=== PATIENT | female | born 2000 | race Caucasian/White ===

== ENCOUNTER 2020-12-15 12:59 | Emergency (ER) | payer MEDICAID ==
[2020-12-15] MEDS ORDERED: TORAdol 30 mg Injection IV ONE (13:23)
[2020-12-15] MEDS ORDERED: TORAdol 30 mg Injection ONE (13:25)
[2020-12-15 13:41] LABS: Appearance CLOUDY (CLEAR); Bacteria MODERATE /HPF (NEGATIVE); Bilirubin NEGATIVE (NEGATIVE); Blood SMALL Ery/ul (0-5); Glucose NEGATIVE (NEGATIVE); Ketones NEGATIVE (NEGATIVE); Leukocyte Esterase MODERATE (NEGATIVE); Mucus MODERATE /HPF (NEGATIVE); Nitrite POSITIVE (NEGATIVE); Protein,Urine Dip 100 (Negative); Specific Gravity 1.014 (1.005-1.025); Urobilinogen 2 mg/dL (0-1); WBC >100 /HPF (0-5)
[2020-12-15 14:13] VITALS: O2SAT 98
--- NOTE | 2020-12-15 14:24 | ERPHSYRPT ---
- History of Present Illness Historian: patient Patient Subjective Stated Complaint: R flank pain, hematuria, frequency x3 days. Triage Nursing Assessment: Pt A & OX3, ambulatory. Wincing in pain. Reports R flank pain x 3 days, radiating to RLQ. Denies vomiting or diarrhea. Reports urinary frequency and hematuria x 3 days. Tachycardic. Skin warm and dry, slightly pale. Physician History: 20 yo wf w R flank pain x 3 days. Pain is 9/10 and sharp. She states that she moulton s had hematuria but denies dysuria/fever/N/V/D/trauma. Nothing makes the pain better or worse, and she has never had this pain before. Timing/Duration: other (3 days) Quality: sharpness Abdominal Pain Onset Location: flank (R flank/R CVA) Pain Radiation: groin (R) Severity of Pain-Max: severe Severity of Pain-Current: severe Modifying Factors: Improves With: nothing Associated Symptoms: back, No chest pain, No diaphoresis, No diarrhea, No fever/chills, No fatigue, No headache, No heartburn, No loss of appetite, No nausea, No neck pain, No rash, No shortness of breath, No syncope, No vomiting Previous symptoms: no prior history Allergies/Adverse Reactions: Penicillins Allergy (Verified 12/15/20 13:16) hives Hx Tetanus, Diphtheria Vaccination/Date Given: Yes Hx Influenza Vaccination/Date Given: Yes Travel Risk - International Travel Have you traveled outside of the country in past 3 weeks: No - Coronavirus Screening Are you exhibiting any of the following symptoms?: No - Review of Systems Constitutional: No Symptoms Eyes: No Symptoms Ears, Nose, & Throat: No Symptoms Respiratory: No Symptoms Cardiac: No Symptoms Abdominal/Gastrointestinal: Abdominal Pain Genitourinary Symptoms: No Symptoms, Hematuria Musculoskeletal: No Symptoms Skin: No Symptoms Neurological: No Symptoms Psychological: No Symptoms Endocrine: No Symptoms Hematologic/Lymphatic: No Symptoms Immunological/Allergic: No Symptoms - Past Medical History Pertinent Past Medical History: No - Past Surgical History Past Surgical History: No - Social History Smoking Status: Current every day smoker Drug Use: none Patient Lives Alone: Yes Significant Family History: no pertinent family hx - Female History Hx Last Menstrual Period: 11/24/2020 Hx Now: No - Nursing Vital Signs Nursing Vital Signs: Initial Vital Signs Pulse Rate 126 H 12/15/20 13:09 Respiratory Rate 19 12/15/20 13:09 Blood Pressure 122/72 12/15/20 13:09 O2 Sat by Pulse Oximetry 99 12/15/20 13:09 Pain Scale Pain Intensity 9 - Physical Exam General Appearance: no apparent distress (In pain) Eye Exam: PERRL/EOMI, eyes nml inspection Ears, Nose, Throat Exam: normal ENT inspection, TMs normal, pharynx normal, moist mucous membranes Neck Exam: normal inspection, non-tender, supple, full range of motion, No meningismus, No mass, No Brudzinski, No Kernig's Respiratory Exam: normal breath sounds Cardiovascular Exam: tachycardia, No murmur Gastrointestinal/Abdomen Exam: soft (R flank ttp/R CVA ttp) Pelvic Exam: not done Rectal Exam: deferred Extremity Exam: pelvis stable, tenderness (R CVA ttp) Neurologic Exam: alert, oriented x 3, cooperative, shellacker II-XII nml as tested, normal mood/affect, nml cerebellar function, nml station & gait, sensation nml, No motor deficits, No sensory deficit Skin Exam: normal color, warm, dry Lymphatic Exam: adenopathy SpO2 Interpretation: normal SpO2: 98 O2 Delivery: Room Air - Course Nursing assessment & vital signs reviewed: Yes - CT Exams Abdomen/Pelvis CT Interpretation: Discussed w/radiologist (R renal edema w perinephric stranding) Ordered Tests: Active Orders 24 hr Category Date Time Status ABDOMEN AND PELVIS W/0 CONTRAS [CT] Stat Exams 12/15/20 14:25 Completed CBC W DIFF Stat Lab 12/15/20 13:15 Completed CMP Stat Lab 12/15/20 13:15 Completed CULTURE,URINE Stat Lab 12/15/20 13:24 Received HCG,QUALITATIVE URINE Stat Lab 12/15/20 13:24 Completed POCT GLUCOSE Stat Lab 12/15/20 13:10 Completed UA W/RFX UR CULTURE Stat Lab 12/15/20 13:24 Completed Medication Summary Discontinued Medications Generic Name Dose Route Start Last Admin Trade Name Freq PRN Reason Stop Dose Admin Fentanyl Citrate 50 mcg 12/15/20 14:25 12/15/20 14:48 Sublimaze 100 Mcg/2 Ml IV 12/15/20 14:26 50 mcg STAT ONE Administration Fentanyl Citrate Confirm 12/15/20 14:45 Sublimaze 100 Mcg/2 Ml Administered 12/15/20 14:46 Dose 100 mcg .ROUTE .STK-MED ONE Hydromorphone HCl 1 mg 12/15/20 16:28 12/15/20 16:29 Hydromorphone 1 Mg/Ml Injection IV 12/15/20 16:29 1 mg STAT ONE Administration Hydromorphone HCl Confirm 12/15/20 16:28 Hydromorphone 1 Mg/Ml Injection Administered 12/15/20 16:29 Dose 1 mg .ROUTE .STK-MED ONE Ceftriaxone Sodium/Dextrose 1 g in 50 mls @ 100 mls/hr 12/15/20 15:07 12/15/20 15:59 Rocephin 1 Gm-D5w 50 Ml Bag IV 12/15/20 15:36 Infused STAT STA Infusion Sodium Chloride 1,000 mls @ 999 mls/hr 12/15/20 15:07 12/15/20 16:16 Sodium Chloride 0.9% 1000 Ml IV 12/15/20 16:07 Infused .Q1H1M STA Infusion Sodium Chloride Confirm 12/15/20 15:06 Sodium Chloride 0.9% 1000 Ml Administered 12/15/20 15:07 Dose 1,000 mls @ ud .ROUTE .STK-MED ONE Ceftriaxone Sodium/Dextrose Confirm 12/15/20 15:07 Rocephin 1 Gm-D5w 50 Ml Bag Administered 12/15/20 15:08 Dose 1 g in 50 mls @ ud IV .STK-MED ONE Ketorolac Tromethamine 30 mg 12/15/20 13:23 12/15/20 13:26 Toradol 30 Mg Injection IV 12/15/20 13:24 30 mg STAT ONE Administration Ketorolac Tromethamine Confirm 12/15/20 13:25 Toradol 30 Mg Injection Administered 12/15/20 13:26 Dose 30 mg .ROUTE .STK-MED ONE Ondansetron HCl 4 mg 12/15/20 14:26 12/15/20 14:47 Zofran 4 Mg/2 Ml Vial IV 12/15/20 14:27 4 mg STAT ONE Administration Ondansetron HCl Confirm 12/15/20 14:44 Zofran 4 Mg/2 Ml Vial Administered 12/15/20 14:45 Dose 4 mg .ROUTE .STK-MED ONE Lab/Rad Data: Laboratory Result Diagrams 12/15/20 13:15 12/15/20 13:15 Laboratory Results 12/15/20 12/15/20 12/15/20 Range/Units 13:24 13:24 13:15 WBC (4.0-10.5) K/mm3 RBC (4.1-5.4) M/mm3 Hgb (12.0-16.0) gm/dl Hct (35-47) % MCV (78-100) fl MCH (26-32) pg MCHC (32-36) g/dl RDW (11.5-14.0) % Plt Count (150-450) K/mm3 MPV (7.5-11.0) fl Gran % (36.0-66.0) % Eos # (Auto) (0-0.5) Absolute Lymphs (auto) (1.0-4.6) Absolute Monos (auto) (0.0-1.3) Lymphocytes % (24.0-44.0) % Monocytes % (0.0-12.0) % Eosinophils % (0.00-5.0) % Basophils % (0.0-0.4) % Absolute Granulocytes (1.4-6.9) Basophils # (0-0.4) Sodium 135 L (137-145) mmol/L Potassium 3.5 (3.5-5.1) mmol/L Chloride 101 (98-107) mmol/L Carbon Dioxide 24 (22-30) mmol/L Anion Gap 13.9 (5-15) MEQ/L BUN 6 L (7-17) mg/dL Creatinine 0.73 (0.52-1.04) mg/dL Estimated GFR > 60.0 ML/MIN Glucose 137 H (74-106) mg/dL POC Glucometer (74 to 106) mg/dL Calcium 9.5 (8.4-10.2) mg/dL Total Bilirubin 0.40 (0.2-1.3) mg/dL AST 23 (14-36) U/L ALT 17 (0-35) U/L Alkaline Phosphatase 75 (38-126) U/L Serum Total Protein 7.3 (6.3-8.2) g/dL Albumin 4.0 (3.5-5.0) g/dL Urine Color YELLOW (YELLOW) Urine Appearance CLOUDY (CLEAR) Urine pH 6.0 (5-6) Ur Specific [place] 1.014 (1.005-1.025) Urine Protein 100 (Negative) Urine Ketones NEGATIVE (NEGATIVE) Urine Blood SMALL (0-5) Alexandre/ul Urine Nitrite POSITIVE (NEGATIVE) Urine Bilirubin NEGATIVE (NEGATIVE) Urine Urobilinogen 2 (0-1) mg/dL Ur Leukocyte Esterase MODERATE (NEGATIVE) Urine WBC (Auto) >100 (0-5) /HPF Urine RBC (Auto) 16-25 (0-2) /HPF U Epithel Cells (Auto) NONE (FEW) /HPF Urine Bacteria (Auto) MODERATE (NEGATIVE) /HPF Urine Mucus (Auto) MODERATE (NEGATIVE) /HPF Urine Culture Reflexed YES (NO) Urine Glucose NEGATIVE (NEGATIVE) mg/dL Urine HCG, Qual NEGATIVE (Negative) 12/15/20 12/15/20 Range/Units 13:15 13:10 WBC 18.2 H (4.0-10.5) K/mm3 RBC 4.73 (4.1-5.4) M/mm3 Hgb 14.4 (12.0-16.0) gm/dl Hct 43.6 (35-47) % MCV 92.2 (78-100) fl MCH 30.4 (26-32) pg MCHC 33.0 (32-36) g/dl RDW 13.8 (11.5-14.0) % Plt Count 330 (150-450) K/mm3 MPV 10.4 (7.5-11.0) fl Gran % 83.9 H (36.0-66.0) % Eos # (Auto) 0.07 (0-0.5) Absolute Lymphs (auto) 1.71 (1.0-4.6) Absolute Monos (auto) 1.11 (0.0-1.3) Lymphocytes % 9.4 L (24.0-44.0) % Monocytes % 6.1 (0.0-12.0) % Eosinophils % 0.4 (0.00-5.0) % Basophils % 0.2 (0.0-0.4) % Absolute Granulocytes 15.27 H (1.4-6.9) Basophils # 0.03 (0-0.4) Sodium (137-145) mmol/L Potassium (3.5-5.1) mmol/L Chloride (98-107) mmol/L Carbon Dioxide (22-30) mmol/L Anion Gap (5-15) MEQ/L BUN (7-17) mg/dL Creatinine (0.52-1.04) mg/dL Estimated GFR ML/MIN Glucose (74-106) mg/dL POC Glucometer 179 H (74 to 106) mg/dL Calcium (8.4-10.2) mg/dL Total Bilirubin (0.2-1.3) mg/dL AST (14-36) U/L ALT (0-35) U/L Alkaline Phosphatase (38-126) U/L Serum Total Protein (6.3-8.2) g/dL Albumin (3.5-5.0) g/dL Urine Color (YELLOW) Urine Appearance (CLEAR) Urine pH (5-6) Ur Specific [place] (1.005-1.025) Urine Protein (Negative) Urine Ketones (NEGATIVE) Urine Blood (0-5) Alexandre/ul Urine Nitrite (NEGATIVE) Urine Bilirubin (NEGATIVE) Urine Urobilinogen (0-1) mg/dL Ur Leukocyte Esterase (NEGATIVE) Urine WBC (Auto) (0-5) /HPF Urine RBC (Auto) (0-2) /HPF U Epithel Cells (Auto) (FEW) /HPF Urine Bacteria (Auto) (NEGATIVE) /HPF Urine Mucus (Auto) (NEGATIVE) /HPF Urine Culture Reflexed (NO) Urine Glucose (NEGATIVE) mg/dL Urine HCG, Qual (Negative) - Progress Progress: improved Progress Note: 12/15/20 16:12 30mg IV Toradol w minimal relief 4mg IV Zofran 100umg Iv Fentanyl w improvement in pain 1L NS bolus 1gm IV rocephin 12/15/20 16:13 12/15/20 20:30 1mg IV Dilaudid before discharge Counseled pt/family regarding: lab results, diagnosis, need for follow-up, rad results - Departure Departure Disposition: Home Clinical Impression: Pyelonephritis Condition: Stable Critical Care Time: No Referrals: SATISH MCDERMOTT [Primary Care Provider] - Instructions: Urinary Tract Infection, Adult (DC) Additional Instructions: Start antibiotic solo Pain meds as needed Return to ER for increasing pain or temperature greater than 100.5 Follow up with your family MD banda Prescriptions: Hydrocodone/Acetaminophen [Hydrocodone-Acetamin 10-325 mg^^^] 1 each PO Q4HPRN PRN #5 tablet MDD 4 tabs PRN Reason: Pain Sulfamethoxazole/Trimethoprim [Bactrim Ds Tablet] 1 each PO BID 7 Days #14 tabl et MDD 4 tabs
[2020-12-15] MEDS ORDERED: SUBLIMAZE 100 MCG/2 ML IV ONE (14:25)
[2020-12-15] MEDS ORDERED: Zofran 4 MG/2 ML VIAL IV ONE (14:26)
[2020-12-15] MEDS ORDERED: Zofran 4 MG/2 ML VIAL ONE (14:44)
[2020-12-15] MEDS ORDERED: SUBLIMAZE 100 MCG/2 ML ONE (14:45)
[2020-12-15 14:54] LABS: Absolute Neutrophil Ct (ANC) 15.27 (1.4-6.9); BASOPHIL % 0.2 % (0.0-0.4); Basophil (Absolute #) 0.03 (0-0.4); Eosinophil % 0.4 % (0.00-5.0); Eosinophil (Absolute #) 0.07 (0-0.5); Hematocrit 43.6 % (35-47); Hemoglobin 14.4 gm/dl (12.0-16.0); Lymphocyte (Absolute #) 1.71 (1.0-4.6); Lymphocytes % 9.4 % (24.0-44.0); Mean Cell Volume 92.2 fl (78-100); Mean Corpuscular Hemoglobin 30.4 pg (26-32); Mean Platelet Volume 10.4 fl (7.5-11.0); Monocyte (Absolute #) 1.11 (0.0-1.3); Monocytes % 6.1 % (0.0-12.0); Neutrophil % 83.9 % (36.0-66.0); Platelet Count 330 K/mm3 (150-450); Red Blood Count 4.73 M/mm3 (4.1-5.4); Red Cell Distribution Width 13.8 % (11.5-14.0); White Blood Count 18.2 K/mm3 (4.0-10.5)
--- NOTE | 2020-12-15 14:56 | XRAY ---
Indication: Abdomen pain radiating to right back. Nausea and vomiting. Multiple contiguous axial images obtained through the abdomen and pelvis without contrast using renal stone protocol. Comparison: None Lung bases are clear. Heart is not enlarged. Stomach is markedly distended with food/fluid. Noncontrasted bowel loops appear nonobstructed. Normal appendix. There is mild/moderate diffuse scattered colonic fecal debris throughout. No free fluid/air. Tiny splenic calcified granulomas. Both kidneys demonstrates faint nephrocalcinosis. Right kidney also appears mildly edematous with perinephric stranding favoring underlying inflammatory/infectious process. Also minimal right hydronephrosis suggestive of recent passage of calculus. Remaining liver, gallbladder, pancreas, spleen, adrenal glands, kidneys, ureters, bladder, uterus, and aorta appear unremarkable for noncontrast exam. Osseous structures intact. Impression: 1. Right renal edema with perinephric stranding and minimal hydronephrosis. Rule out nephritis versus recent obstructive uropathy. 2. Diffuse fecal stasis. 3. Incidental faint nonobstructing bilateral nephrocalcinosis.
[2020-12-15 15:02] LABS: ALKALINE PHOSPHATASE 75 U/L (38-126); ANION GAP 13.9 MEQ/L (5-15); BLOOD UREA NITROGEN 6 mg/dL (7-17); CHLORIDE 101 mmol/L (98-107); Calcium 9.5 mg/dL (8.4-10.2); Carbon Dioxide 24 mmol/L (22-30); Creatinine 1 0.73 mg/dL (0.52-1.04); EST GLOMERULAR FILTRATION RATE > 60.0 ML/MIN; Glucose 137 mg/dL (74-106); Potassium 3.5 mmol/L (3.5-5.1); SGOT/AST 23 U/L (14-36); SGPT/ALT 17 U/L (0-35); SODIUM 135 mmol/L (137-145); Total Protein 7.3 g/dL (6.3-8.2)
[2020-12-15] MEDS ORDERED: Sodium Chloride 0.9% 1000 ML 1,000 ML ONE (15:06)
[2020-12-15] MEDS ORDERED: Sodium Chloride 0.9% 1000 ML 1,000 ML IV STA (15:07)
[2020-12-15] MEDS ORDERED: ROCEPHIN 1 Gm-D5w 50 ml Bag** 1 G/50 ML IVPB IV STA (15:07)
[2020-12-15] MEDS ORDERED: ROCEPHIN 1 Gm-D5w 50 ml Bag** 1 G/50 ML IVPB IV ONE (15:07)
[2020-12-15 16:10] VITALS: BP 127/68; PULSE 101
[2020-12-15] MEDS ORDERED: Hydromorphone 1 mg/ml Injection IV ONE (16:28)
[2020-12-15] MEDS ORDERED: Hydromorphone 1 mg/ml Injection ONE (16:28)
== END 2020-12-15 16:41 | disposition home or self-care (01) ==
LOC: ED 12:59
DX: N12 Tubulo-interstitial nephritis, not specified as acute or chronic (principal)
CPT/HCPCS: 36000; 36415; 74176; 80053; 81001; 82947; 84703; 85025; 87077; 87086; 87186; 96360; 96365; 96374; 96375; 99284; J0696; J1170; J1885; J2405; J3010

== ENCOUNTER 2020-12-26 07:20 | Emergency (ER) | payer MEDICAID ==
[2020-12-26] MEDS ORDERED: Zofran 4 MG/2 ML VIAL ONE (07:36)
[2020-12-26] MEDS ORDERED: Hydromorphone 1 mg/ml Injection IV ONE ×2 (07:36→08:09)
[2020-12-26] MEDS ORDERED: Zofran 4 MG/2 ML VIAL IV ONE (07:36)
[2020-12-26] MEDS ORDERED: Hydromorphone 1 mg/ml Injection ONE ×2 (07:37→08:13)
[2020-12-26] MEDS ORDERED: Ativan 2 MG/1 ML VIAL IV PRN (07:52)
--- NOTE | 2020-12-26 07:52 | ERPHSYRPT ---
- History of Present Illness Time Seen by Provider: 12/26/20 07:26 Source: patient Exam Limitations: no limitations Physician History: 20 years old female with history of right shoulder dislocations in the past presented in the ER with chief complaint of sudden onset right shoulder pain prior to arrival when she rolled over her bed and dislocated. Complaining of sharp throbbing 10/10 intensity pain right shoulder which is aggravated with minimal movement and no significant relieving factor except for being still with minimally decreases the pain. No numbness tingling or weakness in the right upper extremity. No fall or trauma reported. Occurred: this morning Quality: sharpness, stabbing Severity of Pain-Max: severe Severity of Pain-Current: severe Extremities Pain Location: shoulder: right Modifying Factors: Improves With: immobilization. Worsens With: movement Associated Symptoms: none Allergies/Adverse Reactions: Penicillins Allergy (Verified 12/26/20 07:55) hives Home Medications: Loratadine 10 mg [Claritin 10 mg] 10 mg PO DAILY 12/26/20 [History] Hx Tetanus, Diphtheria Vaccination/Date Given: Yes Hx Influenza Vaccination/Date Given: Yes - Review of Systems Constitutional: No Symptoms Eyes: No Symptoms Ears, Nose, & Throat: No Symptoms Respiratory: No Symptoms Cardiac: No Symptoms Abdominal/Gastrointestinal: No Symptoms Genitourinary Symptoms: No Symptoms Musculoskeletal: Arthralgias, Deformity, Joint Pain Skin: No Symptoms Neurological: No Symptoms Psychological: Anxiety Hematologic/Lymphatic: No Symptoms Immunological/Allergic: No Symptoms - Past Medical History Pertinent Past Medical History: No - Past Surgical History Past Surgical History: No - Social History Smoking Status: Current every day smoker Drug Use: none Patient Lives Alone: Yes Significant Family History: no pertinent family hx - Female History Hx Now: (unkn) - Nursing Vital Signs Nursing Vital Signs: Initial Vital Signs Temperature 98.2 F 12/26/20 07:27 Pulse Rate 120 H 12/26/20 07:27 Respiratory Rate 25 H 12/26/20 07:27 Blood Pressure 135/100 12/26/20 07:27 O2 Sat by Pulse Oximetry 98 12/26/20 07:27 Pain Scale Pain Intensity 0 - Physical Exam General Appearance: no apparent distress Eyes, Ears, Nose, Throat Exam: normal ENT inspection Neck Exam: normal inspection, non-tender, supple, full range of motion Cardiovascular/Respiratory Exam: chest non-tender, normal breath sounds, regular rate/rhythm Abdominal Exam: non-tender, soft Back Exam: normal inspection, normal range of motion Shoulder Exam: asymmetry, bone tenderness, deformity (Right shoulder), limited ROM, pain, soft tissue tenderness Elbow/Forearm Exam: normal inspection, non-tender, no evidence of injury Wrist Exam: normal inspection, non-tender, no evidence of injury, normal ROM Hand Exam: normal inspection, non-tender, no evidence of injury Neuro/Tendon Exam: normal sensation, normal motor functions Mental Status Exam: alert, oriented x 3, cooperative Skin Exam: normal color SpO2 Interpretation: normal SpO2: 95 O2 Delivery: Room Air Procedures - Joint Reduction Timeout: Performed Joint Reduction Site: Right, shoulder Conscious Sedation: Yes Reduction Attempts: 1 Pre-Procedure Neurovascular Exam: neurovascular intact, well perfused, no neuro deficit Post Procedure Neurovascular Exam: neurovascular intact, good alignment, changed from pre-exam Post Joint Reduction Film: joint reduced - Procedural Sedation Indication: joint reduction Preparation: consent signed, iv access, previous anesthia/sedation without complications, constant attendance, court monitor, oxygen, procedure explained, pulse oximeter, suction Sedation Parenteral: Etomidate, Fentanyl Response during procedure: light sedation, handled secretions adequately, maintained airway well, oxygenation stable, vital signs stable Post-Procedure Response: return to baseline mental status Ordered Tests: Active Orders 24 hr Category Date Time Status SHOULDER Routine Exams 12/26/20 08:47 Completed SHOULDER Stat Exams 12/26/20 07:59 Completed Medication Summary Generic Name Dose Route Start Last Admin Trade Name Freq PRN Reason Stop Dose Admin Lorazepam 1 mg 12/26/20 07:52 Ativan 2 Mg/1 Ml Vial IV 01/25/21 07:51 PRN PRN CIWA SCORE Discontinued Medications Generic Name Dose Route Start Last Admin Trade Name Freq PRN Reason Stop Dose Admin Diphenhydramine HCl Confirm 12/26/20 08:26 Benadryl 50 Mg/Ml Administered 12/26/20 08:27 Dose 50 mg .ROUTE .STK-MED ONE Etomidate 10 mg 12/26/20 08:11 12/26/20 08:55 Amidate 20 Mg/10 Ml IV 12/26/20 08:12 10 mg ONCE STA Administration Fentanyl Citrate 100 mcg 12/26/20 08:10 12/26/20 08:59 Sublimaze 250 Mcg/5 Ml IV 12/26/20 08:11 100 mcg ONCE STA Administration Fentanyl Citrate Confirm 12/26/20 08:12 Sublimaze 100 Mcg/2 Ml Administered 12/26/20 08:13 Dose 100 mcg .ROUTE .STK-MED ONE Hydromorphone HCl 1 mg 12/26/20 07:36 12/26/20 07:39 Hydromorphone 1 Mg/Ml Injection IV 12/26/20 07:37 1 mg STAT ONE Administration Hydromorphone HCl Confirm 12/26/20 07:37 Hydromorphone 1 Mg/Ml Injection Administered 12/26/20 07:38 Dose 1 mg .ROUTE .STK-MED ONE Hydromorphone HCl 2 mg 12/26/20 08:09 12/26/20 08:56 Hydromorphone 1 Mg/Ml Injection IV 12/26/20 08:10 2 mg STAT ONE Administration Hydromorphone HCl Confirm 12/26/20 08:13 Hydromorphone 1 Mg/Ml Injection Administered 12/26/20 08:14 Dose 2 mg .ROUTE .STK-MED ONE Sodium Chloride 1,000 mls @ 999 mls/hr 12/26/20 08:11 12/26/20 10:07 Sodium Chloride 0.9% 1000 Ml IV 12/26/20 09:11 Infused .Q1H1M STA Infusion Sodium Chloride Confirm 12/26/20 08:13 Sodium Chloride 0.9% 1000 Ml Administered 12/26/20 08:14 Dose 1,000 mls @ ud .ROUTE .STK-MED ONE Naloxone HCl Confirm 12/26/20 08:13 Narcan 2 Mg/2 Ml Administered 12/26/20 08:14 Dose 2 mg .ROUTE .STK-MED ONE Ondansetron HCl 4 mg 12/26/20 07:36 12/26/20 07:39 Zofran 4 Mg/2 Ml Vial IV 12/26/20 07:37 4 mg STAT ONE Administration Ondansetron HCl Confirm 12/26/20 07:36 Zofran 4 Mg/2 Ml Vial Administered 12/26/20 07:37 Dose 4 mg .ROUTE .STK-MED ONE - Progress Progress: improved Progress Note: 12/26/20 08:46 She is given symptomatic treatment for pain with IV Dilaudid. X-ray is showed dislocated right shoulder. After discussion with patient in detail about risk/benefits of moderate sedation she signed consent. She is given etomidate/fentanyl/Dilaudid as patient was having difficulty controlling pain/obtaining enough level of sedation to manipulate her shoulder. Successful reduction is done, sling is applied and x-rays were repeated which shows humeral head in appropriate position. She is arousable to verbal commands at end of procedure. She would follow-up with orthopedic surgery. 12/26/20 10:53 Patient is almost back to her baseline and has tolerated orally. No vomiting. Discussed with patient about not being around machinery/driving until tomorrow. She is being discharged. Counseled pt/family regarding: diagnosis, need for follow-up, rad results, smoking cessation - Departure Clinical Impression: Shoulder dislocation Qualifiers: Encounter type: initial encounter Laterality: right Qualified Code(s): S43.004A - Unspecified dislocation of right shoulder joint, initial encounter Condition: Stable Critical Care Time: No Referrals: SATISH MCDERMOTT [Primary Care Provider] - Follow Up with PCP/3 days GAY MEYER Jr., MD [NON-STAFF PHY W/O PRIVILEGES] - (3 days for re evaluation ) Instructions: Shoulder Dislocation (DC), Moderate Sedation in Adults (DC) Additional Instructions: Keep the sling on. Avoid exertional activities with right upper extremity. Take pain medications as needed. Follow-up with orthopedic surgery for further evaluation and management. Return to ER for recurrent dislocation. Do not drive or operate any machinery until tomorrow. Follow moderate sedation instructions. Prescriptions: Ibuprofen 600 mg PO Q6HPRN PRN 10 Days #20 tablet PRN Reason: Pain
[2020-12-26] MEDS ORDERED: SUBLIMAZE 250 MCG/5 ML IV STA (08:10)
[2020-12-26] MEDS ORDERED: Sodium Chloride 0.9% 1000 ML 1,000 ML IV STA (08:11)
[2020-12-26] MEDS ORDERED: Amidate 20 MG/10 ML IV STA (08:11)
[2020-12-26] MEDS ORDERED: SUBLIMAZE 100 MCG/2 ML ONE (08:12)
[2020-12-26] MEDS ORDERED: Sodium Chloride 0.9% 1000 ML 1,000 ML ONE (08:13)
[2020-12-26] MEDS ORDERED: NARCAN 2 MG/2 ML ONE (08:13)
[2020-12-26] MEDS ORDERED: BENADRYL 50 MG/ML ONE (08:26)
--- NOTE | 2020-12-26 08:58 | XRAY ---
Indication: Postreduction. Comparison: Taken earlier today. 2 view right shoulder demonstrates successful reduction of previous humeral head dislocation. No other bony, articular, or soft tissue abnormalities.
--- NOTE | 2020-12-26 08:58 | XRAY ---
Indication: Dislocation. Comparison: None 3 view right shoulder demonstrates anterior inferior humeral head dislocation. No other bony, articular, or soft tissue abnormalities.
[2020-12-26 10:47] VITALS: BP 116/79; PULSE 67
[2020-12-26 10:54] VITALS: O2SAT 95
== END 2020-12-26 11:15 | disposition home or self-care (01) ==
LOC: ED 07:20
DX: S43.004A Unspecified dislocation of right shoulder joint, initial encounter (principal); X50.9XXA Other and unspecified overexertion or strenuous movements or postures, initial encounter; X50.0XXA Overexertion from strenuous movement or load, initial encounter; Y93.89 Activity, other specified; Y92.003 Bedroom of unspecified non-institutional (private) residence as the place of occurrence of the external cause; Y99.9 Unspecified external cause status
CPT/HCPCS: 23650; 73030; 94770; 94799; 96360; 96374; 96375; 96376; 99284; J1170; J1200; J2310; J2405; J3010

== ENCOUNTER 2021-05-19 08:17 | Emergency (ER) | payer MEDICAID ==
--- NOTE | 2021-05-19 08:56 | ERPHSYRPT ---
- History of Present Illness Time Seen by Provider: 05/19/21 08:50 Source: patient Physician History: Patient is a 20-year-old female with a history of gonorrhea currently being treated for trichomoniasis presents to our ED today with a swollen left labia majora. Patient states her symptoms started approximately 2 to 3 days ago. The area is becoming progressively swollen and tender. Patient states the pain is reproduced with palpation. Pain is localized. No radiation. Pain currently rated 9 out of 10. Patient has no other symptomology. She occasionally feels a pressure in her pelvis. However no vaginal discharge. Patient denies foul odor. Symptoms are constant. Symptoms are moderate in intensity. Patient voices no other complaints or concerns at this time. Timing/Duration: day(s) (3 days ago) Severity: moderate Modifying Factors: Improves With: other (Palpation to the involved area reproduces symptoms.) Associated Symptoms: denies symptoms Allergies/Adverse Reactions: Penicillins Allergy (Verified 05/19/21 08:26) hives Home Medications: Loratadine 10 mg [Claritin 10 mg] 10 mg PO DAILY 12/26/20 [History] Hx Tetanus, Diphtheria Vaccination/Date Given: Yes Hx Influenza Vaccination/Date Given: Yes Hx Pneumococcal Vaccination/Date Given: No Travel Risk - Vaccine Status Have you recieved a Covid-19 vaccination: No - Review of Systems Constitutional: No Symptoms, No Fever, No Chills Eyes: No Symptoms Ears, Nose, & Throat: No Symptoms Respiratory: No Symptoms, No Cough, No Dyspnea Cardiac: No Symptoms, No Chest Pain, No Edema, No Syncope Abdominal/Gastrointestinal: No Symptoms, No Abdominal Pain, No Nausea, No Vomiting, No Diarrhea Genitourinary Symptoms: No Symptoms, No Dysuria Musculoskeletal: No Symptoms, No Back Pain, No Neck Pain Skin: No Symptoms, No Rash Neurological: No Symptoms, No Dizziness, No Focal Weakness, No Sensory Changes Psychological: No Symptoms Endocrine: No Symptoms Hematologic/Lymphatic: No Symptoms Immunological/Allergic: No Symptoms All Other Systems: Reviewed and Negative - Past Medical History Pertinent Past Medical History: No - Past Surgical History Past Surgical History: No - Social History Smoking Status: Current every day smoker Exposure to second hand smoke: No Drug Use: none Patient Lives Alone: Yes Significant Family History: no pertinent family hx - Nursing Vital Signs Nursing Vital Signs: Initial Vital Signs Temperature 98.8 F 08/24/21 08:30 Pulse Rate 100 H 05/19/21 08:30 Respiratory Rate 18 05/19/21 08:30 Blood Pressure 135/100 05/19/21 08:30 O2 Sat by Pulse Oximetry 100 05/19/21 08:30 Pain Scale Pain Intensity 6 - Physical Exam General Appearance: no apparent distress, alert Eye Exam: PERRL/EOMI, eyes nml inspection Ears, Nose, Throat Exam: normal ENT inspection, TMs normal, pharynx normal, moist mucous membranes Neck Exam: normal inspection, non-tender, supple, full range of motion Respiratory Exam: normal breath sounds, lungs clear, No respiratory distress Cardiovascular Exam: regular rate/rhythm, normal heart sounds, normal peripheral pulses Gastrointestinal/Abdomen Exam: soft, normal bowel sounds, No tenderness, No mass Pelvic Exam: other (Pelvic exam performed. No cervical motion tenderness. Scant white vaginal discharge. There is no obvious swelling at the left labia majora with minor edema of the labia minora. Physical exam consistent with a Bartholin gland cyst. Anatomy otherwise within normal limits.), No adnexal tenderness, No adnexal mass, No cervical motion tenderness, No vaginal bleeding Back Exam: normal inspection, normal range of motion, No CVA tenderness, No vertebral tenderness Extremity Exam: normal inspection, normal range of motion, pelvis stable Neurologic Exam: alert, oriented x 3, cooperative, normal mood/affect, nml cerebellar function, nml station & gait, sensation nml, No motor deficits Skin Exam: normal color, warm, dry, No rash Lymphatic Exam: No adenopathy SpO2 Interpretation: normal SpO2: 100 O2 Delivery: Room Air - Course Nursing assessment & vital signs reviewed: Yes Ordered Tests: Active Orders 24 hr Category Date Time Status CULTURE,ABSCESS Stat Lab 05/19/21 10:59 Ordered UA W/RFX UR CULTURE Stat Lab 05/19/21 10:27 Completed Wet Prep Stat Lab 05/19/21 10:27 Completed Medication Summary Discontinued Medications Generic Name Dose Route Start Last Admin Trade Name Freq PRN Reason Stop Dose Admin Amoxicillin/Clavulanate Potassium 875 mg 05/19/21 10:41 05/19/21 10:54 Augmentin 875-125 Tablet PO 05/19/21 10:42 875 mg STAT ONE Administration Amoxicillin/Clavulanate Potassium Confirm 05/19/21 10:52 Augmentin 875-125 Tablet Administered 05/19/21 10:53 Dose 875 mg .ROUTE .STK-MED ONE Ibuprofen 400 mg 05/19/21 11:17 Motrin 400 Mg PO 05/19/21 11:18 STAT ONE Ibuprofen 400 mg 05/19/21 11:17 Motrin 400 Mg PO 05/19/21 11:18 STAT ONE Lidocaine/Epinephrine Confirm 05/19/21 10:20 Xylocaine 2%-Epi 1:100,000 Mdv Administered 05/19/21 10:21 Dose 1 ml IJ .STK-MED ONE Lab/Rad Data: Laboratory Results 05/19/21 05/19/21 Range/Units 10:27 10:27 Urine Color STRAW (YELLOW) Urine Appearance CLEAR (CLEAR) Urine pH 6.0 (5-6) Ur Specific [place] 1.013 (1.005-1.025) Urine Protein NEGATIVE (Negative) Urine Ketones NEGATIVE (NEGATIVE) Urine Blood NEGATIVE (0-5) Alexandre/ul Urine Nitrite NEGATIVE (NEGATIVE) Urine Bilirubin NEGATIVE (NEGATIVE) Urine Urobilinogen NEGATIVE (0-1) mg/dL Ur Leukocyte Esterase NEGATIVE (NEGATIVE) Urine WBC (Auto) 0-2 (0-5) /HPF Urine RBC (Auto) NONE (0-2) /HPF U Epithel Cells (Auto) NONE (FEW) /HPF Urine Bacteria (Auto) NONE (NEGATIVE) /HPF Urine Mucus (Auto) SLIGHT (NEGATIVE) /HPF Urine Culture Reflexed NO (NO) Urine Glucose NEGATIVE (NEGATIVE) mg/dL WBC (Wet Prep) Moderate RBC (Wet Prep) Few Epi Cells (Wet Prep) Moderate Bacteria (Wet Prep) Few Clue Cells (Wet Prep) Few Trichomonas (Wet Prep) None Seen Budding Yeast (Wet Prp) None Seen - Progress Progress: improved Progress Note: Bartholin's gland cyst. I&D was performed by Dr. Snowden. Patient to follow-up on Tuesday, 4 days. Purulent drainage observed. Patient will be started on Bactrim twice daily for 7 days along with Augmentin p.o. twice daily for 7 days. Patient reports a possible allergy to penicillin but is not sure. We will provide patient a dose of Augmentin in our ED and assess patient. If no signs of allergic reaction will discharge home on Augmentin per Dr. Snowden request. 05/19/21 10:44 05/19/21 10:45 Patient will follow up with Dr. Snowden on Tuesday at 915. 05/19/21 10:49 Will see patient in: office (Patient will follow up on Tuesday and Dr. Snowden office) Counseled pt/family regarding: lab results, diagnosis, need for follow-up - Departure Departure Disposition: Home Clinical Impression: Bartholin's gland abscess, STD (female) Condition: Stable Critical Care Time: No Referrals: SATISH MCDERMOTT [Primary Care Provider] - Additional Instructions: Discharge/Care Plan JOSSIEALEX REECE was seen on 05/19/21 in the Emergency Room. The patient was counseled regarding Diagnosis,Lab results, Imaging studies, need for follow up and when to return to the Emergency Room. Prescriptions given: Discharge Note I have spoken with the patient and/or caregivers. I have explained the patient's condition, diagnosis and treatment plan based on the information available to me at this time. I have answered the patient's and/or caregiver's questions and addressed any concerns. The patient and/or caregivers have as good understanding of the patient's diagnosis, condition and treatment plan as can be expected at this point. The vital signs have been stable. The patient's condition is stable and appropriate for discharge from the emergency department. The patient will pursue further outpatient evaluation with the primary care physician or other designated or consulting physician as outlined in the discharge instructions. The patient and/or caregivers are agreeable to this plan of care and follow-up instructions have been explained in detail. The patient and/or caregivers have received these instruction. The patient/and or caregivers are aware that any significant change in condition or worsening of symptoms should prompt an immediate return to this or the closest emergency department or call 911. Prescriptions: Amox Tr/Potass Clav. 875 mg [Augmentin 875-125 Tablet] 1 each PO BID 7 Days #14 tablet Smz/Tmp Ds Tablet [Bactrim Ds Tablet] 1 udtab PO BID 7 Days #14 tablet
[2021-05-19] MEDS ORDERED: Xylocaine 2%-Epi 1:100,000 MDV IJ ONE (10:20)
[2021-05-19 10:28] LABS: Appearance CLEAR (CLEAR); Bilirubin NEGATIVE (NEGATIVE); Blood NEGATIVE Ery/ul (0-5); Glucose NEGATIVE (NEGATIVE); Ketones NEGATIVE (NEGATIVE); Leukocyte Esterase NEGATIVE (NEGATIVE); Mucus SLIGHT /HPF (NEGATIVE); Nitrite NEGATIVE (NEGATIVE); Protein,Urine Dip NEGATIVE (Negative); Specific Gravity 1.013 (1.005-1.025); Urobilinogen NEGATIVE mg/dL (0-1); WBC 0-2 /HPF (0-5)
[2021-05-19 10:32] LABS: Bacteria Few; Clue Cells Few; Red Blood Cells Few; Trichomonas None Seen; White Blood Cells Moderate; Yeast None Seen
[2021-05-19] MEDS ORDERED: Augmentin 875-125 Tablet PO ONE (10:41)
[2021-05-19] MEDS ORDERED: XYLOCAINE 2%/Epi 1:200000 20ML VIAL MPF IJ ONE (10:44)
[2021-05-19] MEDS ORDERED: Augmentin 875-125 Tablet ONE (10:52)
[2021-05-19] MEDS ORDERED: MOTRIN 400 MG PO ONE ×2 (11:17)
[2021-05-19] MEDS ORDERED: MOTRIN 400 MG ONE (11:18)
[2021-05-19 11:50] LABS: CHLAMYDIA DNA NOT DETECTED (NEGATIVE); GC DNA Probe NOT DETECTED (NEGATIVE)
[2021-05-19 12:05] VITALS: BP 118/74; PULSE 88; O2SAT 98
== END 2021-05-19 12:21 | disposition home or self-care (01) ==
LOC: ED 08:17
DX: N75.8 Other diseases of Bartholin's gland (principal); A64 Unspecified sexually transmitted disease; A59.9 Trichomoniasis, unspecified
CPT/HCPCS: 56405; 81001; 87070; 87077; 87210; 87491; 87591; 99284; A9270-GY

== ENCOUNTER 2021-08-08 14:15 | Emergency (ER) | payer MEDICAID, OTHER ==
--- NOTE | 2021-08-08 14:53 | ERPHSYRPT ---
- History of Present Illness Time Seen by Provider: 08/08/21 14:30 Source: patient Exam Limitations: no limitations Patient Subjective Stated Complaint: Pt states that she has a cyst on her perineal area that needs drained, she had one last month on the opposite side and Dr. Snowden drained it and gave her an antibiotic, pt would also like to be tested for all STDs Triage Nursing Assessment: Pt was brought to the ER by a friend, hypertensive, rates pain as 6/10, pulses normal, area slightly swollen on the outer perineal area of the right side, doesn't appear to be in any distress Physician History: This is a 21-year-old white female who presents with approximately 2-day history of a swelling in her perineal area on the right side. Approximately 1 month ago she had a similar but more pronounced with greater tenderness abscess/cyst on the left side. It required Dr. Snowden, gynecology, to art it and put her on antibiotics. She wanted to try to avoid incision and drainage and therefore she came to the emergency room to be placed on antibiotics. While here, she stated she wanted to be tested for all STDs. She is not symptomatic but she is concerned that there may be issues with her significant other and wants to be tested. She has no vaginal discharge. She has no dysuria or hematuria. She denies fever. She has no nausea or vomiting. It has been over a month since her last menstrual period Timing/Duration: day(s) Activites at Onset: none Quality: other (Right perineal subcutaneous thickness) Onset Location: unknown (But noticed it approximately 2 days ago) Severity of Pain-Max: none Severity of Pain-Current: none Prior abdominal problems: none Sexual intercourse history: non-contributory Modifying Factors: Improves With: nothing Associated Symptoms: denies symptoms Allergies/Adverse Reactions: Penicillins Allergy (Verified 05/19/21 08:26) hives Home Medications: Loratadine 10 mg [Claritin 10 mg] 10 mg PO DAILY 12/26/20 [History] Hx Tetanus, Diphtheria Vaccination/Date Given: Yes Hx Influenza Vaccination/Date Given: Yes Hx Pneumococcal Vaccination/Date Given: No Travel Risk - International Travel Have you traveled outside of the country in past 3 weeks: No - Coronavirus Screening Are you exhibiting any of the following symptoms?: No Close contact with a COVID-19 positive Pt in past 14-21 Days: No - Vaccine Status Have you recieved a Covid-19 vaccination: No - Review of Systems Constitutional: No Symptoms Eyes: No Symptoms Ears, Nose, & Throat: No Symptoms Respiratory: No Symptoms Cardiac: No Symptoms Abdominal/Gastrointestinal: No Symptoms Genitourinary Symptoms: Other (Right side perineal subcutaneous thickness with minimal tenderness) Musculoskeletal: No Symptoms Skin: No Symptoms Neurological: No Symptoms Psychological: No Symptoms Endocrine: No Symptoms Hematologic/Lymphatic: No Symptoms Immunological/Allergic: No Symptoms All Other Systems: Reviewed and Negative - Past Medical History Pertinent Past Medical History: No - Past Surgical History Past Surgical History: No - Social History Smoking Status: Current every day smoker How long have you smoked: 2 years Exposure to second hand smoke: No Drug Use: none Patient Lives Alone: No Significant Family History: no pertinent family hx - Female History Hx Last Menstrual Period: 07/02/2021 Hx Now: No (unknown) - Nursing Vital Signs Nursing Vital Signs: Initial Vital Signs Temperature 98.1 F 08/08/21 14:19 Pulse Rate 86 08/08/21 14:19 Blood Pressure 143/96 08/08/21 14:19 O2 Sat by Pulse Oximetry 100 08/08/21 14:19 Pain Scale Pain Intensity 6 - Physical Exam General Appearance: no apparent distress, alert, anxiety, thin Eye Exam: PERRL/EOMI, eyes nml inspection Ears, Nose, Throat Exam: normal ENT inspection, moist mucous membranes Neck Exam: normal inspection, non-tender, supple, full range of motion Respiratory Exam: airway intact, No chest tenderness, No respiratory distress Gastrointestinal/Abdomen Exam: No tenderness Pelvic Exam: normal external exam, other (On the right perineal region in the area where she feels a fullness, there is no external or palpable evidence of abscess. There is no redness present.) Back Exam: normal inspection, normal range of motion, No CVA tenderness, No vertebral tenderness Extremity Exam: normal inspection, normal range of motion, pelvis stable Neurologic Exam: alert, oriented x 3, cooperative, rag sorter and cutter II-XII nml as tested, normal mood/affect, nml cerebellar function, nml station & gait, sensation nml Skin Exam: normal color, warm, dry Lymphatic Exam: No adenopathy SpO2 Interpretation: normal SpO2: 100 O2 Delivery: Room Air - Course Nursing assessment & vital signs reviewed: Yes Ordered Tests: Active Orders 24 hr Category Date Time Status CULTURE,URINE Stat Lab 08/08/21 15:19 Received HCG,QUALITATIVE URINE Stat Lab 08/08/21 15:19 Completed UA W/RFX UR CULTURE Stat Lab 08/08/21 15:19 Completed Lab/Rad Data: Laboratory Results 08/08/21 08/08/21 08/08/21 Range/Units Unknown 15:19 15:19 Urine Color YELLOW (YELLOW) Urine Appearance SLIGHTLY CLOUDY (CLEAR) Urine pH 5.0 (5-6) Ur Specific [place] 1.021 (1.005-1.025) Urine Protein NEGATIVE (Negative) Urine Ketones SMALL (NEGATIVE) Urine Blood SMALL (0-5) Alexandre/ul Urine Nitrite NEGATIVE (NEGATIVE) Urine Bilirubin NEGATIVE (NEGATIVE) Urine Urobilinogen 2 (0-1) mg/dL Ur Leukocyte Esterase LARGE (NEGATIVE) Urine WBC (Auto) 3-5 (0-5) /HPF Urine RBC (Auto) 3-5 (0-2) /HPF U Epithel Cells (Auto) NONE (FEW) /HPF Urine Bacteria (Auto) RARE (NEGATIVE) /HPF Urine Mucus (Auto) SLIGHT (NEGATIVE) /HPF Urine Culture Reflexed YES (NO) Urine Glucose NEGATIVE (NEGATIVE) mg/dL Urine HCG, Qual NEGATIVE (Negative) Chlamydia DNA Probe NOT DETECTED (NEGATIVE) N.gonorrhoeae DNA Probe NOT DETECTED (NEGATIVE) - Progress Progress: unchanged Air Movement: good Blood Culture(s) Obtained: No Antibiotics given: No Counseled pt/family regarding: lab results, diagnosis, need for follow-up - Departure Departure Disposition: Home Clinical Impression: UTI (urinary tract infection) Condition: Stable Critical Care Time: No Referrals: SATISH MCDERMOTT NP [Primary Care Provider] - Follow up/PCP as directed Additional Instructions: May use sitz bath with warm soapy water or Epson salts twice a day. Use Tylenol and ibuprofen for pain control. Take antibiotics as prescribed. Follow-up with your primary care physician or medical staff specialist as needed. Prescriptions: Smz/Tmp Ds Tablet [Bactrim Ds Tablet] 1 udtab PO BID #14 tablet
[2021-08-08 15:44] LABS: Appearance SLIGHTLY CLOUDY (CLEAR); Bacteria RARE /HPF (NEGATIVE); Bilirubin NEGATIVE (NEGATIVE); Blood SMALL Ery/ul (0-5); Glucose NEGATIVE (NEGATIVE); Ketones SMALL (NEGATIVE); Leukocyte Esterase LARGE (NEGATIVE); Mucus SLIGHT /HPF (NEGATIVE); Nitrite NEGATIVE (NEGATIVE); Protein,Urine Dip NEGATIVE (Negative); Specific Gravity 1.021 (1.005-1.025); Urobilinogen 2 mg/dL (0-1)
[2021-08-08 17:03] LABS: CHLAMYDIA DNA NOT DETECTED (NEGATIVE); GC DNA Probe NOT DETECTED (NEGATIVE)
== END 2021-08-08 17:21 | disposition home or self-care (01) ==
LOC: ED 14:15
DX: N39.0 Urinary tract infection, site not specified (principal); Z72.0 Tobacco use
CPT/HCPCS: 81001; 84703; 87077; 87086; 87186; 87491; 87591; 99283

== ENCOUNTER 2021-12-08 08:30 | Inpatient (IN) | payer OTHER ==
[2021-12-08] MEDS: miSOPROStoL VAG SCH (20:56)
[2021-12-08] MEDS: Lactated Ringers 1,000 ML IV SCH (20:57)
[2021-12-08] MEDS ORDERED: Zofran 4 MG/2 ML VIAL IV PRN (21:00)
[2021-12-08 21:06] LABS: Absolute Neutrophil Ct (ANC) 6.52 (1.4-6.9); Basophil (Absolute #) 0.03 (0-0.4); Eosinophil % 1.3 % (0.00-5.0); Eosinophil (Absolute #) 0.12 (0-0.5); Hematocrit 38.6 % (35-47); Hemoglobin 13.6 gm/dl (12.0-16.0); Lymphocyte (Absolute #) 1.54 (1.0-4.6); Mean Cell Volume 88.5 fl (78-100); Mean Corpuscular Hemoglobin 31.2 pg (26-32); Mean Corpuscular Hgb Concent. 35.2 g/dl (32-36); Mean Platelet Volume 9.6 fl (7.5-11.0); Monocyte (Absolute #) 0.84 (0.0-1.3); Monocytes % 9.3 % (0.0-12.0); Neutrophil % 72.1 % (36.0-66.0); Platelet Count 279 K/mm3 (150-450); Red Blood Count 4.36 M/mm3 (4.1-5.4); Red Cell Distribution Width 12.8 % (11.5-14.0); White Blood Count 9.1 K/mm3 (4.0-10.5)
[2021-12-08 21:36] LABS: COVID AG -BINAX NOW RAPID TEST NEGATIVE (NEGATIVE)
[2021-12-08 21:41] LABS: ABO TYPING O; Antibody Screen NEGATIVE (NEGATIVE); RH TYPING POSITIVE
[2021-12-09] MEDS: STADOL 2 MG IV PRN ×7 (00:39→21:25)
[2021-12-09] MEDS: miSOPROStoL VAG SCH ×3 (00:46→09:10)
[2021-12-09] MEDS ORDERED: miSOPROStoL VAG SCH (13:00)
[2021-12-09] MEDS: miSOPROStoL PO SCH ×3 (16:19→22:21)
[2021-12-09] MEDS: Lactated Ringers 1,000 ML IV SCH (17:51)
[2021-12-09] MEDS: TYLENOL EXTRA STRENGTH 500 MG PO PRN (21:26)
[2021-12-10] MEDS: STADOL 2 MG IV PRN ×6 (01:17→23:44)
[2021-12-10] MEDS: TYLENOL EXTRA STRENGTH 500 MG PO PRN ×2 (01:18→22:31)
[2021-12-10] MEDS: miSOPROStoL PO SCH ×2 (01:19→04:15)
[2021-12-10] MEDS ORDERED: miSOPROStoL VAG ONE (07:20)
[2021-12-10] MEDS ORDERED: miSOPROStoL VAG SCH (07:20)
[2021-12-10] MEDS: miSOPROStoL VAG SCH ×5 (10:26→22:14)
[2021-12-11] MEDS: miSOPROStoL VAG SCH ×6 (01:30→16:58)
[2021-12-11] MEDS: STADOL 2 MG IV PRN ×3 (04:16→14:34)
[2021-12-11] MEDS ORDERED: miSOPROStoL VAG SCH ×2 (07:30)
--- NOTE | 2021-12-11 07:52 | PCM.NOTE ---
Date and Time: 12/11/21 0750 Subjective Assessment: pt was admitted for cytotec induction for 13 wk demise and is on day 3 without expulsion. pt states if she does not pass content by tomorrow will undergo d&e tomorrow. states cramping at this time and has been using pain medication for relief a/p demise at 13 wks will continue cytotec induction at this time OBJECTIVE DATA Vital Signs: Vital Signs - 24 hr Temp Pulse Resp BP Pulse Ox 12/11/21 04:43 99 F 78 18 104/49 99 12/11/21 02:00 98.7 F 80 18 106/51 98 12/10/21 20:00 98.9 F 79 18 102/55 100 12/10/21 13:00 98.5 F 71 18 105/61 12/10/21 09:00 98.3 F 60 18 106/55 Pain Assessment - Last Documented Pain Intensity 8 Pain Scale Used 0-10 Pain Scale Intake and Output: Intake & Output 12/08/21 12/09/21 12/10/21 12/11/21 11:59 11:59 11:59 11:59 Intake Total 2080 970 Output Total 400 Balance 1680 970 Weight 54.885 kg
[2021-12-11] MEDS: TYLENOL EXTRA STRENGTH 500 MG PO PRN (12:21)
[2021-12-11] MEDS ORDERED: NORCO 5/325 MG PO PRN (13:41)
[2021-12-11] MEDS ORDERED: Ambien 5 MG Tablet PO ONE (13:41)
[2021-12-11] MEDS ORDERED: STADOL 2 MG IV PRN (17:50)
[2021-12-11] MEDS ORDERED: Pitocin 10 UNITS/ML IV ONE ×2 (19:33)
[2021-12-11] MEDS ORDERED: Pitocin 10 UNITS/ML ONE (19:42)
[2021-12-11] MEDS ORDERED: MOTRIN 400 MG ONE (19:42)
[2021-12-11] MEDS ORDERED: PITOCIN 30 UNITS/ LR 500 ML 500 ML IV ONE (19:47)
[2021-12-11] MEDS: MOTRIN 600 MG PO PRN (19:54)
[2021-12-11] MEDS ORDERED: NON-FORMULARY ITEM TOP SCH (20:30)
[2021-12-11] MEDS ORDERED: Ambien 5 MG Tablet ONE (21:33)
[2021-12-12] MEDS ORDERED: MOTRIN 400 MG ONE (03:57)
[2021-12-12] MEDS: MOTRIN 600 MG PO PRN (03:58)
--- NOTE | 2021-12-12 09:13 | PCM.NOTE ---
Date and Time: 12/12/21 0908 Subjective Assessment: december 09 pt admitted on december 08 for cytotec induction secondary to 13 wk demise and denies craming or vaginal bleeding at this time. vss afebrile a/p iup at 13 wks with demise will continue with vaginal cytotec induction OBJECTIVE DATA Vital Signs: Vital Signs - 24 hr Temp Pulse Resp BP BP Pulse Ox 12/12/21 04:10 98.6 F 76 16 94/55 98 12/12/21 03:00 98.3 F 46 L 16 94/55 98 12/11/21 22:16 97.8 F 98 H 18 117/59 98 12/11/21 21:00 97.6 F 96 H 18 113/72 99 12/11/21 20:40 98.8 F 92 H 18 121/71 99 12/11/21 20:00 81 18 105/58 98 12/11/21 19:45 86 18 114/60 99 12/11/21 19:30 98.8 F 81 16 109/59 97 12/11/21 19:15 105 H 16 151/73 100 12/11/21 15:15 98.1 F 65 18 94/46 Pain Assessment - Last Documented Pain Intensity 3 Pain Scale Used 0-10 Pain Scale Intake and Output: Intake & Output 12/09/21 12/10/21 12/11/21 12/12/21 11:59 11:59 11:59 11:59 Intake Total 2080 1390 1200 Output Total 400 300 Balance 1680 1390 900 Weight 54.885 kg Assessment/Plan (1) demise before 20 weeks with retention of fetus Current Visit: Yes Status: Acute Code(s): O02.1 - MISSED
--- NOTE | 2021-12-12 09:18 | PCM.NOTE ---
Date and Time: 12/12/21916 Subjective Assessment: pt resting in bed and doing well with continued pelvic cramping currently undergoing cytotec induction. vss afebrile abd; soft ap iup 13 wks demise will continue cytotec induction OBJECTIVE DATA Vital Signs: Vital Signs - 24 hr Temp Pulse Resp BP BP Pulse Ox 12/12/21 04:10 98.6 F 76 16 94/55 98 12/12/21 03:00 98.3 F 46 L 16 94/55 98 12/11/21 22:16 97.8 F 98 H 18 117/59 98 12/11/21 21:00 97.6 F 96 H 18 113/72 99 12/11/21 20:40 98.8 F 92 H 18 121/71 99 12/11/21 20:00 81 18 105/58 98 12/11/21 19:45 86 18 114/60 99 12/11/21 19:30 98.8 F 81 16 109/59 97 12/11/21 19:15 105 H 16 151/73 100 12/11/21 15:15 98.1 F 65 18 94/46 Pain Assessment - Last Documented Pain Intensity 3 Pain Scale Used 0-10 Pain Scale Intake and Output: Intake & Output 12/09/21 12/10/21 12/11/21 12/12/21 11:59 11:59 11:59 11:59 Intake Total 2080 1390 1200 Output Total 400 300 Balance 1680 1390 900 Weight 54.885 kg Assessment/Plan (1) demise before 20 weeks with retention of fetus Current Visit: Yes Status: Acute Code(s): O02.1 - MISSED
--- NOTE | 2021-12-12 09:22 | PCM.NOTE ---
Date and Time: 12/12/21917 Subjective Assessment: pt currently doing well and has passed fetus december 11 at 1910 and placenta at 191 without complication and intact. denies vaginal bleeding or cramping today and is stable for discharge. vss afebrile abd; soft uterus; firm a/p sp complete will dc home today fu office 2 wks OBJECTIVE DATA Vital Signs: Vital Signs - 24 hr Temp Pulse Resp BP BP Pulse Ox 12/12/21 04:10 98.6 F 76 16 94/55 98 12/12/21 03:00 98.3 F 46 L 16 94/55 98 12/11/21 22:16 97.8 F 98 H 18 117/59 98 12/11/21 21:00 97.6 F 96 H 18 113/72 99 12/11/21 20:40 98.8 F 92 H 18 121/71 99 12/11/21 20:00 81 18 105/58 98 12/11/21 19:45 86 18 114/60 99 12/11/21 19:30 98.8 F 81 16 109/59 97 12/11/21 19:15 105 H 16 151/73 100 12/11/21 15:15 98.1 F 65 18 94/46 Pain Assessment - Last Documented Pain Intensity 3 Pain Scale Used 0-10 Pain Scale Intake and Output: Intake & Output 12/09/21 12/10/21 12/11/21 12/12/21 11:59 11:59 11:59 11:59 Intake Total 2080 1390 1200 Output Total 400 300 Balance 1680 1390 900 Weight 54.885 kg Assessment/Plan (1) demise before 20 weeks with retention of fetus Current Visit: Yes Status: Acute Code(s): O02.1 - MISSED (2) demise, less than 22 weeks, delivered, current hospitalization Current Visit: Yes Status: Acute Code(s): [id number] -
[2021-12-12 09:25] VITALS: BP 112/69; PULSE 84; O2SAT 99
--- NOTE | 2021-12-12 09:26 | PCM.DS ---
Discharge Summary Date of Admission: 12/10/21 08:30 Admitting Physician: PALMIRA CAIN DO Primary Care Provider: SATISH MCDERMOTT Allergies Allergies No Known Drug Allergies Allergy (Unverified 12/08/21 23:02) Hospital Summary - Hospital Course Hospital Course: pt admitted on december 08 for cytotec induction at 13 wk demise and was started on vaginal cytotec and had 5 doses and was switched to oral cytotec for 5 doses and then subsequently switched back again to vaginal cytotec and finally delivered fetus on december 11 without complication at 1912. after delivery pt did well and now stable for discharge. specimen sent for genetic testing at this time. pt will fu in office in 2 wks for care. all questions answered to her satisfaction and at this time stable for discharge. - Vitals & Intake/Output Vital Signs: Vital Signs Temperature 98.6 F 12/12/21 04:10 Pulse Rate 76 12/12/21 04:10 Respiratory Rate 16 12/12/21 04:10 Blood Pressure 94/55 12/12/21 04:10 O2 Sat by Pulse Oximetry 98 12/12/21 04:10 Intake & Output: Intake & Output 12/09/21 12/10/21 12/11/21 12/12/21 11:59 11:59 11:59 11:59 Intake Total 2080 1390 1200 Output Total 400 300 Balance 1680 1390 900 Weight 54.885 kg - Lab Result Diagrams: 12/08/21 21:02 Final Diagnosis/Problem List - Final Discharge Diagnosis/Problem (1) demise before 20 weeks with retention of fetus Current Visit: Yes Status: Acute Code(s): O02.1 - MISSED (2) demise, less than 22 weeks, delivered, current hospitalization Current Visit: Yes Status: Acute Code(s): [id number] - - Discharge Disposition: Home, Self-Care Condition: Stable Prescriptions: No Action Ondansetron ODT 4 MG [Zofran Odt 4 mg] 4 mg PO Q8H PRN PRN PRN Reason: Nausea Follow up with: SATISH MCDERMOTT NP [Primary Care Provider] - PALMIRA CAIN DO [ACTIVE STAFF] - 2 weeks
[2021-12-12 11:35] LABS: Amphetamine,Urine NEGATIVE (NEGATIVE); Barbiturate,Urine NEGATIVE (NEGATIVE); Benzodiazepine,Urine NEGATIVE (NEGATIVE); Cocaine,Urine NEGATIVE (NEGATIVE); Methadone,Urine NEGATIVE (NEGATIVE); Opiate,Urine NEGATIVE (NEGATIVE); PCP,Urine NEGATIVE (NEGATIVE); THC,Urine POSITIVE (NEGATIVE)
== END 2021-12-12 10:40 | disposition home or self-care (01) | DRG 807 ==
LOC: MED SURG 08:30 → OBSVTOIN 12-10 08:30 → INTOOBSV 12-10 08:30 → UNDODISIN 12-12 10:40
PROVIDERS: ADMIT Obstetrics & Gynecology; ATTEND Obstetrics & Gynecology
PROC: 10E0XZZ Delivery of Products of Conception, External Approach (ICD-10-PCS; principal; 2021-12-11)
PROC: 3E0P7VZ Introduction of Hormone into Female Reproductive, Via Natural or Artificial Opening (ICD-10-PCS; 2021-12-11)
DX: O02.1 Missed abortion (principal); Z37.1 Single stillbirth; Z3A.14 14 weeks gestation of pregnancy
CPT/HCPCS: 36415; 80307; 85025; 86850; 86900; 86901; 99000; G0378; J0595; J2405; J2590; A9270-GY

== ENCOUNTER 2022-10-31 10:12 | Emergency (ER) | payer OTHER ==
[2022-10-31 10:30] VITALS: BP 131/90; PULSE 85
[2022-10-31] MEDS ORDERED: TORAdol 30 mg Injection IM ONE (10:37)
--- NOTE | 2022-10-31 10:44 | ERPHSYRPT ---
- History of Present Illness Source: patient Exam Limitations: no limitations Patient Subjective Stated Complaint: pt reports a short fall approx 0500, states she struck her left ribs on her metal outdoor steps, denies any other injury at this time, pt reports pain increased with inspiration Triage Nursing Assessment: pt is aox3, pupils perrl, afebrile, resps easy and non labored, radial pulses strong and equal, cap refill < 3 seconds, pt skin pink warm dry. pt skin is unremarkable, no injury noted. Physician History: 20 yo wf fell up steps at 5AM presents w L sided thoracic pain. Pain is rated as severe. She denies head injury/LOC/C,T, L-spine pain/abdominal pain/upper extremity pain/Hip pain-lower extremity pain. is also denied. Occurred: other (5AM) Reason for Fall: slipped Injuries/Pain Location: chest Loss of Consciousness: no loss of consciousness Quality: sharpness, stabbing Severity of Pain-Max: severe Severity of Pain-Current: severe Modifying Factors: Improves With: movement (Deep breaths) Associated Symptoms (Fall): denies symptoms Allergies/Adverse Reactions: No Known Drug Allergies Allergy (Verified 10/31/22 10:30) Hx Tetanus, Diphtheria Vaccination/Date Given: Yes Hx Influenza Vaccination/Date Given: No Hx Pneumococcal Vaccination/Date Given: No Immunizations Up to Date: Yes Travel Risk - International Travel Have you traveled outside of the country in past 3 weeks: No - Coronavirus Screening Are you exhibiting any of the following symptoms?: No Close contact with a COVID-19 positive Pt in past 14-21 Days: No - Vaccine Status Have you recieved a Covid-19 vaccination: No - Vaccination Dates Comment: N/A - Review of Systems Constitutional: No Symptoms Eyes: No Symptoms Ears, Nose, & Throat: No Symptoms Respiratory: No Symptoms Cardiac: No Symptoms Abdominal/Gastrointestinal: No Symptoms Genitourinary Symptoms: No Symptoms Musculoskeletal: No Symptoms Skin: No Symptoms Neurological: No Symptoms Psychological: No Symptoms Endocrine: No Symptoms Hematologic/Lymphatic: No Symptoms Immunological/Allergic: No Symptoms - Past Medical History Pertinent Past Medical History: Yes Other Medical History: hypogylcemia. shoulder dislocation - Past Surgical History Past Surgical History: No - Social History Smoking Status: Current every day smoker How long have you smoked: 2 years Exposure to second hand smoke: No Drug Use: none Patient Lives Alone: Yes Significant Family History: no pertinent family hx - Female History Hx Last Menstrual Period: 09/27/22 Hx Now: No - Nursing Vital Signs Nursing Vital Signs: Initial Vital Signs Temperature 98 F 10/31/22 10:20 Pulse Rate 85 10/31/22 10:20 Respiratory Rate 18 10/31/22 10:20 Blood Pressure 131/90 10/31/22 10:20 O2 Sat by Pulse Oximetry 100 10/31/22 10:20 Pain Scale Pain Intensity 7 WNL - [place] Coma Score Best Eye Response ([place]): (4) open spontaneously Best Verbal Response ([place]): (5) oriented Best Motor Response ([place]): (6) obeys commands [place] Total: 15 - Physical Exam General Appearance: no apparent distress Head Injury: no evidence of injury Eye Exam: PERRL/EOMI ENT Exam: airway nml, No evidence of ENT injury, No clear fluid (ears), No clear fluid (nose) Neck Exam: supple, trachea midline, other (C-spine NTTP) Respiratory/Chest Exam: rib tenderness (TTP L lateral thoracic area), No respiratory distress Cardiovascular Exam: regular rate/rhythm, normal peripheral pulses, No murmur Gastrointestinal Exam: soft, normal bowel sounds, No tenderness Back Exam: normal inspection, normal range of motion, vertebral tenderness (No T or L-spine TTP), No CVA tenderness Extremity Exam: normal inspection, normal range of motion, pelvis stable Neurologic Exam: alert, oriented x 3, cooperative, 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 nml as tested, normal mood/affect, sensation nml Skin Exam: normal color, warm, dry SpO2 Interpretation: normal SpO2: 100 O2 Delivery: Room Air - Course Nursing assessment & vital signs reviewed: Yes - CT Exams Chest CT Interpretation: Tele-radiologist Report (CT chest neg per Teler[facility]) Ordered Tests: Active Orders 24 hr Category Date Time Status CHEST WITHOUT CONTRAST [CT] Stat Exams 10/31/22 11:10 Taken Medication Summary Discontinued Medications Generic Name Dose Route Start Last Admin Trade Name Freq PRN Reason Stop Dose Admin Ketorolac Tromethamine 15 mg 10/31/22 10:37 10/31/22 10:46 Ketorolac Tromethamine 30 Mg/Ml Inj IM 10/31/22 10:38 15 mg STAT ONE Administration Ketorolac Tromethamine Confirm 10/31/22 10:45 Ketorolac Tromethamine 30 Mg/Ml Inj Administered 10/31/22 10:46 Dose 30 mg .ROUTE .STK-MED ONE - Progress Progress: improved Progress Note: 10/31/22 11:53 15mg IM Toradol 10/31/22 12:16 Nursing note and vital signs reviewed CT result reviewed and results shared w pt Pain minimally improved w 15mg IM toradol. Unable to take Lortab due to severe N/V, so Rx Lodine sent to pharmacy Pt w only L lateral thoracic TTP on serial exams No food or housing insecurities noted Additional history per mother Counseled pt/family regarding: diagnosis, need for follow-up, rad results - Departure Departure Disposition: Home Clinical Impression: Chest wall contusion Condition: Stable Critical Care Time: No Referrals: SATISH MCDERMOTT NP [Primary Care Provider] - Follow up/PCP as directed Instructions: Contusion (DC) Additional Instructions: Ice for 12-24 hours Lodine as needed for pain Follow up with your family MD Return to ER for increasing pain or shortness of breath Prescriptions: Etodolac 400 mg [Lodine 400 mg] 400 mg PO TID PRN PRN #10 tablet PRN Reason: Pain
[2022-10-31 10:45] VITALS: O2SAT 100
[2022-10-31] MEDS ORDERED: TORAdol 30 mg Injection ONE (10:45)
--- NOTE | 2022-10-31 19:53 | XRAY ---
Indication: Pain following fall. Multiple contiguous axial images obtained through the chest without contrast. Comparison: None Lungs are inflated and clear with incidental small right upper lobe calcified granuloma. No suspicious pulmonary mass, infiltrate, effusion, or pneumothorax. Heart not enlarged. Aorta is normal in course and caliber. Small right hilar calcified nodes. No pathologic mediastinal lymphadenopathy. Bony thorax intact. Limited upper abdomen demonstrates a few splenic calcified granulomas. Impression: Normal CT chest without contrast exam. Incidental old granulomatous disease. Comment: Preliminary interpretation made by [facility]. No critical discrepancy.
== END 2022-10-31 12:55 | disposition home or self-care (01) ==
LOC: ED 10:12
DX: S20.212A Contusion of left front wall of thorax, initial encounter (principal); W10.9XXA Fall (on) (from) unspecified stairs and steps, initial encounter; Z28.310 Unvaccinated for COVID-19; Z72.0 Tobacco use
CPT/HCPCS: 71250; 96372; 99283; J1885

== ENCOUNTER 2024-01-17 15:06 | Observation (INO) | payer OTHER ==
[2024-01-17 15:58] LABS: Amphetamine,Urine POSITIVE (NEGATIVE); Barbiturate,Urine NEGATIVE (NEGATIVE); Benzodiazepine,Urine NEGATIVE (NEGATIVE); Cocaine,Urine NEGATIVE (NEGATIVE); Methadone,Urine NEGATIVE (NEGATIVE); Opiate,Urine NEGATIVE (NEGATIVE); PCP,Urine NEGATIVE (NEGATIVE); THC,Urine POSITIVE (NEGATIVE)
[2024-01-17 16:02] VITALS: BP 104/53; PULSE 85; RESP 18; TEMP 98.2; O2SAT 99
[2024-01-17 16:09] LABS: ADD URINE CULTURE? YES (NO); Appearance Clear (Clear); Bacteria Rare /HPF (None Seen); Bilirubin Negative (Negative); Blood Moderate (Negative); Epithelial Cells Few /HPF (None Seen); Glucose, Urine Negative (Negative); Hyaline Casts NONE SEEN /LPF (0-2); Ketones Negative (Negative); Leukocyte Esterase Small (Negative); Nitrite Negative (Negative); Ph 7.5 (4.6-8.0); Protein,Urine Dip Negative (Negative); RBC 0-2 /HPF (0-5); Specific Gravity 1.015 (1.005-1.030); Sperm Rare /HPF (None Seen); Urobilinogen 0.2 mg/dL (0.2); WBC 0-2 /HPF (0-5)
== END 2024-01-17 16:28 | disposition home or self-care (01) ==
LOC: OB 15:06
PROVIDERS: ADMIT Family Medicine; ATTEND Family Medicine
DX: Z34.83 Encounter for supervision of other normal pregnancy, third trimester (principal); Z3A.34 34 weeks gestation of pregnancy
CPT/HCPCS: 80307; 81001; 87086; G0378; G0379

== ENCOUNTER 2024-02-07 02:30 | Inpatient (IN) | payer OTHER ==
[2024-02-07] MEDS ORDERED: Lactated Ringers 1,000 ML IV ONE (02:48)
[2024-02-07] MEDS: Lactated Ringers 1,000 ML IV SCH (02:55)
[2024-02-07] MEDS ORDERED: OMNIPEN 2 GM ONE (03:00)
[2024-02-07] MEDS: OMNIPEN 2 GM*** 2 G in Sodium Chloride 100ML MINI-BAG PLUS 100 ML IV ONE (03:00)
[2024-02-07] MEDS ORDERED: Sodium Chloride 0.9% 100 ML ONE (03:01)
[2024-02-07] MEDS ORDERED: FENTANYL 2 MCG-BUPIV 0.125%-NS 250 ML Epidur 250 ML EPIDURAL ONE (03:04)
[2024-02-07 03:07] LABS: Absolute Neutrophil Ct (ANC) 8.43 x10^3/uL (1.4-6.9); BASOPHIL % 0.5 % (0.0-0.4); Basophil (Absolute #) 0.05 x10^3/uL (0-0.4); Eosinophil % 0.5 % (0.00-5.0); Eosinophil (Absolute #) 0.06 x10^3/uL (0-0.5); Hematocrit 32.5 % (35-47); Hemoglobin 10.9 g/dL (12.0-16.0); IMMATURE GRAN # 0.08 x10^3u/L (0.00-0.03); IMMATURE GRAN % 0.7 % (0.00-0.4); Lymphocyte (Absolute #) 1.59 x10^3/uL (1.0-4.6); Lymphocytes % 14.5 % (24.0-44.0); Mean Cell Volume 86.7 fL (78-100); Mean Corpuscular Hemoglobin 29.1 pg (26-32); Mean Corpuscular Hgb Concent. 33.5 g/dL (32-36); Mean Platelet Volume 11.1 fL (7.5-11.0); Monocyte (Absolute #) 0.73 x10^3/uL (0.0-1.3); Monocytes % 6.7 % (0.0-12.0); Neutrophil % 77.1 % (36.0-66.0); Platelet Count 257 x10^3/uL (150-450); Red Blood Count 3.75 x10^6/uL (4.1-5.4); Red Cell Distribution Width 12.9 % (11.5-14.0); White Blood Count 10.9 x10^3/uL (4.0-10.5)
[2024-02-07] MEDS ORDERED: Ephedrine Sulfate 50 MG/ML IV PRN (03:11)
[2024-02-07] MEDS ORDERED: XYLOCAINE 1% HCL 20 ML MDV IJ PRN (03:11)
[2024-02-07] MEDS: FENTANYL 2 MCG-BUPIV 0.125%-NS 250 ML Epidur 250 ML EPIDURAL SCH (03:35)
[2024-02-07 03:44] LABS: ABO TYPING O; Antibody Screen NEGATIVE (NEGATIVE); RH TYPING POSITIVE
[2024-02-07 04:32] LABS: Appearance Clear (Clear); Bacteria None Seen /HPF (None Seen); Bilirubin Negative (Negative); Blood NHT (Negative); Epithelial Cells None Seen /HPF (None Seen); Glucose, Urine Negative (Negative); Hyaline Casts NONE SEEN /LPF (0-2); Ketones 15 (Negative); Leukocyte Esterase Negative (Negative); Nitrite Negative (Negative); Ph 6.5 (4.6-8.0); Protein,Urine Dip Negative (Negative); WBC 0-2 /HPF (0-5)
[2024-02-07 04:41] LABS: Barbiturate,Urine NEGATIVE (NEGATIVE); Benzodiazepine,Urine NEGATIVE (NEGATIVE); Cocaine,Urine NEGATIVE (NEGATIVE); Methadone,Urine NEGATIVE (NEGATIVE); Opiate,Urine NEGATIVE (NEGATIVE); PCP,Urine NEGATIVE (NEGATIVE); THC,Urine POSITIVE (NEGATIVE)
[2024-02-07 05:12] LABS: Amphetamine,Urine POSITIVE (NEGATIVE)
[2024-02-07] MEDS ORDERED: OMNIPEN 1 GM ONE (06:53)
[2024-02-07] MEDS ORDERED: Sodium Chloride 100ML MINI-BAG PLUS 100 ML IV ONE (06:54)
[2024-02-07] MEDS: OMNIPEN 1 GM*** 1 GM in Sodium Chloride 100ML MINI-BAG PLUS 100 ML IV SCH (06:59)
[2024-02-07] MEDS: PITOCIN 30 UNITS/ LR 500 ML 30 UNITS/500 ML PLAST..BAG IV SCH (08:15)
[2024-02-07] MEDS ORDERED: Mylicon 80MG PO PRN (11:19)
[2024-02-07] MEDS ORDERED: CORTISONE 1% CREAM TP PRN (11:19)
[2024-02-07] MEDS ORDERED: M-M-R II Vaccine With Diluent SQ ONE (11:19)
[2024-02-07] MEDS ORDERED: NORCO 5/325 MG PO PRN (11:19)
[2024-02-07] MEDS ORDERED: Dulcolax 10 MG SUPP PR PRN (11:19)
[2024-02-07] MEDS ORDERED: Anucort-HC SUPPOSITORY PR PRN (11:19)
[2024-02-07] MEDS ORDERED: Ambien 10 MG PO PRN (11:19)
[2024-02-07] MEDS: MOTRIN 400 MG PO PRN (12:59)
[2024-02-07] MEDS: Dermoplast Spray TP PRN (12:59)
[2024-02-07] MEDS: TUCKS TP PRN (14:44)
[2024-02-07] MEDS: Docusate Sodium 100 MG PO SCH (21:54)
[2024-02-08] MEDS: LANSINOH 40 GM TOP PRN (00:44)
[2024-02-08 04:54] LABS: Absolute Neutrophil Ct (ANC) 11.46 x10^3/uL (1.4-6.9); BASOPHIL % 0.4 % (0.0-0.4); Basophil (Absolute #) 0.06 x10^3/uL (0-0.4); Eosinophil % 0.8 % (0.00-5.0); Eosinophil (Absolute #) 0.12 x10^3/uL (0-0.5); Hematocrit 32.4 % (35-47); Hemoglobin 11.1 g/dL (12.0-16.0); IMMATURE GRAN # 0.18 x10^3u/L (0.00-0.03); IMMATURE GRAN % 1.2 % (0.00-0.4); Lymphocyte (Absolute #) 2.91 x10^3/uL (1.0-4.6); Lymphocytes % 18.8 % (24.0-44.0); Mean Cell Volume 87.6 fL (78-100); Mean Corpuscular Hgb Concent. 34.3 g/dL (32-36); Mean Platelet Volume 11.4 fL (7.5-11.0); Monocyte (Absolute #) 0.75 x10^3/uL (0.0-1.3); Monocytes % 4.8 % (0.0-12.0); Platelet Count 273 x10^3/uL (150-450); Red Cell Distribution Width 13.1 % (11.5-14.0); White Blood Count 15.5 x10^3/uL (4.0-10.5)
[2024-02-08] MEDS: FERREX 150 PO SCH (11:29)
[2024-02-08] MEDS: TYLENOL EXTRA STRENGTH 500 MG PO PRN (11:29)
[2024-02-08] MEDS: Adacel Vial IM ONE (21:33)
[2024-02-09 10:04] VITALS: RESP 18
[2024-02-10 08:18] VITALS: BP 127/65; PULSE 69; TEMP 97.7; O2SAT 98
--- NOTE | 2024-02-10 09:19 | PCM.DS ---
Discharge Summary Date of Admission: 02/07/24 02:30 Admitting Physician: CARLOS ABREU Consults: Consults on Case 02/07/24 11:19 Notify Physician ROUTINE 02/07/24 13:41 Navigation ONCE Primary Care Provider: SATISH MCDERMOTT Allergies Allergies No Known Drug Allergies Allergy (Verified 02/07/24 03:07) Hospital Summary - Hospital Course Hospital Course: patient came in with spontaneous labor and delivered with no complications at 37wks a viable female infant. no repair, no complications . drug screen +thc and amphetamines, cps consulted, she denies illicit substance use. - Vitals & Intake/Output Vital Signs: Vital Signs Temperature 97.7 F 02/10/24 08:00 Pulse Rate 69 02/10/24 08:00 Respiratory Rate 18 02/10/24 08:00 Blood Pressure 127/65 02/10/24 08:00 O2 Sat by Pulse Oximetry 98 02/10/24 08:00 Intake & Output: Intake & Output 02/07/24 02/08/24 02/09/24 02/10/24 11:59 11:59 11:59 11:59 Intake Total 2250 600 480 Output Total 950 Balance 1300 600 480 Weight 68.039 kg - Lab Result Diagrams: 02/08/24 04:10 Micro Results-Entire Visit: Microbiology 02/07/24 04:23 Urine Culture - Final Urine, Void NO GROWTH Discharge Exam General Appearance: no apparent distress Neurologic Exam: alert, oriented x 3 Respiratory Exam: normal breath sounds, lungs clear, No respiratory distress Cardiovascular Exam: regular rate/rhythm, normal heart sounds Gastrointestinal/Abdomen Exam: soft, other (fundus firm), No tenderness, No mass Final Diagnosis/Problem List - Final Discharge Diagnosis/Problem (1) Vaginal delivery Current Visit: Yes Status: Acute Code(s): O80 - ENCOUNTER FOR FULL-TERM UNCOMPLICATED DELIVERY (2) () Current Visit: Yes Status: Acute Code(s): Z78.9 - OTHER SPECIFIED HEALTH STATUS - Discharge Disposition: Home, Self-Care Condition: Stable Prescriptions: Continue Pnv No.103/Folic/Om3s/Fish Oil [ Gummies] 1 each PO DAILY Discontinued Ondansetron [Ondansetron Odt ] 4 mg PO Q6H PRN PRN Reason: Nausea Additional Instructions: PLEASE RETURN TO THE OB UNIT AT [facility] FOR A FOLLOW UP 48 HOURS AFTER YOUR DISCHARGE. PLEASE CALL DR. ABREU' OFFICE TO SCHEDULE A POST FOLLOW UP WELL. IF YOU HAVE ANY CONCERNS, PLEASE CALL DR. ABREU' OFFICE OR VISIT YOUR NEAREST EMERGENCY ROOM. YOU MAY ALWAYS CALL THE OB UNIT AT THE HOSPITAL WELL. Follow up with: SATISH MCDERMOTT NP [Primary Care Provider] - CARLOS ABREU MD [ACTIVE STAFF] - 6 weeks Forms: OB Discharge Instructions
== END 2024-02-10 10:40 | disposition home or self-care (01) | DRG 807 ==
LOC: OB 02:30 → OBSVTOIN 02:30
PROVIDERS: ADMIT Family Medicine; ATTEND Family Medicine
PROC: 10E0XZZ Delivery of Products of Conception, External Approach (ICD-10-PCS; principal; 2024-02-07)
DX: O80 Encounter for full-term uncomplicated delivery (principal); Z37.0 Single live birth; Z3A.37 37 weeks gestation of pregnancy; F15.90 Other stimulant use, unspecified, uncomplicated; F12.90 Cannabis use, unspecified, uncomplicated; Z87.42 Personal history of other diseases of the female genital tract
CPT/HCPCS: 36415; 80307; 81001; 85025; 86850; 86900; 86901; 87086; 90715; 96372; J0290; J2590; A9270-GY

== ENCOUNTER 2025-06-18 05:47 | Day surgery (SDC) | payer OTHER ==
[2025-06-18] MEDS ORDERED: CEFAZOLIN SODIUM ONE (06:17)
[2025-06-18 06:18] VITALS: RESP 18
[2025-06-18] MEDS: Lactated Ringers 1,000 ML IV SCH (06:20)
[2025-06-18] MEDS ORDERED: XYLOCAINE 1%/Epi 1:100000 MDV 20 ML ONE (06:20)
[2025-06-18 06:30] LABS: Hematocrit 33.3 % (34.1-44.9); Hemoglobin 11.2 g/dL (11.2-15.7); Mean Corpuscular Hemoglobin 30.6 pg (25.6-32.2); Mean Corpuscular Hgb Concent. 33.6 g/dL (32.2-35.5); Platelet Count 260 x10^3/uL (182-369); Red Blood Count 3.66 x10^6/uL (3.93-5.22); White Blood Count 9.3 x10^3/uL (3.98-10.04)
[2025-06-18] MEDS ORDERED: propofoL IV ONE ×2 (07:56→08:06)
[2025-06-18] MEDS ORDERED: XYLOCAINE 1% HCL 20 ML MDV ONE (07:58)
[2025-06-18] MEDS ORDERED: TYLENOL EXTRA STRENGTH 500 MG PO ONE ×2 (08:30)
[2025-06-18] MEDS ORDERED: Zithromax 250 MG TABLET PO ONE (08:40)
[2025-06-18 08:55] VITALS: PULSE 84; O2SAT 99
[2025-06-18 09:04] VITALS: BP 115/83; TEMP 98.2
--- NOTE | 2025-06-20 09:25 | OP ---
SURGERY DATE/TIME: 06/18/2025 [id number] PREOPERATIVE DIAGNOSIS: Recurrent right Bartholin's abscess. POSTOPERATIVE DIAGNOSIS: Recurrent right Bartholin's abscess. PROCEDURE: Incision and drainage of the right Bartholin's abscess and placement of a Word catheter. SURGEON: Parag Snowden DO DRIVER LICENSE TECHNICIAN: Maida Newton. ANESTHESIA: General. ESTIMATED BLOOD LOSS: Minimal. COMPLICATION: None. INDICATIONS: The risks, benefits, indications, and alternatives of the procedure were reviewed with the patient prior to the procedure. The patient understood the risks of infection, bleeding, bowel injury, bladder injury, pelvic infection, possible miscarriage associated with having the surgery as a result of possible ascending infection at 18 weeks gestation; however, desired to have the surgery as a possible means to alleviate her current medical condition. DESCRIPTION OF PROCEDURE AND FINDINGS: At this point, the patient was taken to the operating room; given general sedation; placed in a dorsal lithotomy position; prepped and draped in the usual sterile fashion. From this point, a right Bartholin's abscess was then noted; and approximately 4 x 4 cm in dimension of the medial aspect of the Bartholin's cyst region, a stab incision was made with a #11 blade; where at this point, pustular material was removed, and approximately 10 mL of pustular material had been removed at this point; where at this point, a Word catheter was then placed into the incision. Approximately 3 mL of normal saline was introduced through the Word catheter. After placement of the Word catheter, patient was then taken out of anesthesia, was taken out of the dorsal lithotomy position, and was then taken to recovery room in stable condition. All instruments and laps were accounted for x2.
== END 2025-06-18 09:11 | disposition home or self-care (01) ==
LOC: SDC 05:47
PROVIDERS: ATTEND Obstetrics & Gynecology
DX: N75.8 Other diseases of Bartholin's gland (principal)